=== PATIENT | male | born 1955 | race Hispanic/Latino ===

== ENCOUNTER 2021-05-08 12:34 | Observation (INO) | payer OTHER ==
[~2021-05-08] VITALS: Ht 160 cm; Wt 96.9 kg
[2021-05-08] MEDS ORDERED: ZOSYN 3.375GM+NS 50ML 50 ML IV STA (13:11)
[2021-05-08] MEDS ORDERED: ACETAMINOPHEN 500 MG TABLET PO ONE (13:30)
[2021-05-08] MEDS ORDERED: KETOROLAC 15MG/ML VIAL (15MG/ML) IV ONE (13:30)
[2021-05-08] MEDS ORDERED: VANCOMYCIN 1G VIAL IVPB ONE (13:30)
[2021-05-08] MEDS ORDERED: 0.9%NACL 1000ML 1,000 ML IV ONE (13:44)
[2021-05-08] MEDS ORDERED: 0.9%NACL 100ML 100 ML ONE (13:45)
[2021-05-08 13:46] LABS: BASOPHILS % (AUTO) 0.4 % (0.0-5.0); EOSINOPHILS % (AUTO) 0.6 % (0.0-8.0); HEMATOCRIT 36.2 % (42-54); LYMPHOCYTES % (AUTO) 18.5 % (21.0-51.0); MEAN CORPUSCULAR HEMOGLOBIN 28.1 pg (27.0-33.0); MEAN CORPUSCULAR HGB CONC 32.3 g/dL (32.0-36.0); MEAN CORPUSCULAR VOLUME 86.8 fL (79-99); MONOCYTES % (AUTO) 8.6 % (3.0-13.0); NEUTROPHILS % (AUTO) 71.3 % (40.0-77.0); PLATELET COUNT (AUTO) 237 K/uL (130-400); RED BLOOD CELL COUNT(AUTO) 4.17 MIL/uL (4.50-6.20); RED CELL DISTRIBUTION WIDTH 14.7 % (11.0-15.5)
[2021-05-08 13:57] LABS: PROTHROMBIN TIME 10.9 SEC (9.6-11.6)
[2021-05-08 13:58] LABS: PARTIAL THROMBOPLASTIN TIME 27.9 SEC (26.3-35.5)
[2021-05-08 13:59] LABS: CREATININE 0.9 mg/dL (0.5-1.5); POTASSIUM 4.1 mmol/L (3.5-5.1)
[2021-05-08 14:01] LABS: APPEARANCE,URINE CLEAR (CLEAR); BILIRUBIN,URINE NEGATIVE (NEGATIVE); COLOR,URINE YELLOW (YELLOW); GLUCOSE, URINE (UA) NEGATIVE (NEGATIVE); KETONES,URINE NEGATIVE (NEGATIVE); LEUKOCYTE ESTERASE ,URINE TRACE (NEGATIVE); NITRATE,URINE NEGATIVE (NEGATIVE); OCCULT BLOOD,URINE SMALL (NEGATIVE); PROTEIN,URINE NEGATIVE (NEGATIVE); UROBILINOGEN,URINE 0.2 mg/dL (0.2-1.0)
[2021-05-08 14:04] LABS: ALBUMIN 3.2 g/dL (3.5-5.0); BILIRUBIN,TOTAL 0.4 mg/dL (0.2-1.0)
[2021-05-08] MEDS ORDERED: VANCOMYCIN 1G/250ML KIT 250 ML IV ONE (14:13)
[2021-05-08 14:49] LABS: BACTERIA,URINE Few /HPF (None Seen); RBC,URINE 0-1 /HPF (0-1)
[2021-05-08] MEDS ORDERED: HYDROCODONE/ACETAMINOPHEN 5/325 MG TAB PO PRN (15:30)
[2021-05-08] MEDS ORDERED: CLONIDINE HCL 0.1 MG TABLET PO PRN (15:30)
[2021-05-08] MEDS ORDERED: ACETAMINOPHEN 650 MG SUPPOSITORY RC PRN (15:30)
[2021-05-08] MEDS ORDERED: HYDRALAZINE 20MG/ML VIAL IV PRN (15:30)
[2021-05-08] MEDS ORDERED: LACTULOSE 20 GM/30 ML UDCUP PO PRN (15:30)
[2021-05-08] MEDS ORDERED: HYDROMORPHONE 0.5 MG SYG (0.5MG/0.5ML) IVP PRN (15:30)
[2021-05-08] MEDS ORDERED: DOCUSATE SODIUM 100 MG CAP PO PRN (15:30)
[2021-05-08] MEDS ORDERED: VANCOMYCIN PROTOCOL PER PHARMACY IV SCH (15:30)
[2021-05-08] MEDS ORDERED: TEMAZEPAM 15 MG CAPSULE PO PRN (15:30)
[2021-05-08] MEDS ORDERED: ONDANSETRON 4MG INJ IVP PRN (15:30)
[2021-05-08] MEDS ORDERED: ACETAMINOPHEN 325 MG TAB PO PRN (15:30)
[2021-05-08] MEDS ORDERED: LABETALOL 20MG SYG IV PRN (15:30)
[2021-05-08] MEDS: VANCOMYCIN 1G/250ML KIT 250 ML IV SCH (16:04)
[2021-05-08] MEDS: 0.9%NACL 1000ML 1,000 ML IV SCH (16:25)
[2021-05-08] MEDS ORDERED: ATOR10TA PO (16:33)
[2021-05-08] MEDS ORDERED: TAMS-1 PO (16:33)
[2021-05-08] MEDS ORDERED: METF-446 PO (16:33)
[2021-05-08] MEDS ORDERED: PIOG30TA10 PO (16:33)
[2021-05-08] MEDS ORDERED: LOSA50TA64 PO (16:33)
[2021-05-08] MEDS ORDERED: OXYB5TAB15 PO (16:33)
[2021-05-08] MEDS ORDERED: ALLO300T2 PO (16:33)
[2021-05-08 16:49] VITALS: BP 149/89
[2021-05-08] MEDS: METFORMIN HCL 500 MG TABLET PO SCH (17:48)
[2021-05-08] MEDS ORDERED: ZOSYN 3.375GM+NS 50ML 50 ML ONE (19:32)
[2021-05-08] MEDS: ZOSYN 3.375GM +NS 50ML IV SCH (19:50)
[2021-05-08 20:00] VITALS: BP 109/61
[2021-05-09] VITALS: BP 119/74
[2021-05-09 04:00] VITALS: BP 116/72
[2021-05-09] MEDS: 0.9%NACL 1000ML 1,000 ML IV SCH (04:50)
[2021-05-09 04:57] LABS: BASOPHILS % (AUTO) 0.5 % (0.0-5.0); EOSINOPHILS % (AUTO) 2.6 % (0.0-8.0); HEMATOCRIT 33.9 % (42-54); MEAN CORPUSCULAR HEMOGLOBIN 27.5 pg (27.0-33.0); MEAN CORPUSCULAR HGB CONC 31.6 g/dL (32.0-36.0); MEAN CORPUSCULAR VOLUME 87.1 fL (79-99); MONOCYTES % (AUTO) 8.5 % (3.0-13.0); NEUTROPHILS % (AUTO) 66.9 % (40.0-77.0); PLATELET COUNT (AUTO) 237 K/uL (130-400); RED BLOOD CELL COUNT(AUTO) 3.89 MIL/uL (4.50-6.20); WHITE BLOOD COUNT (AUTO) 6.4 K/uL (4.8-10.8)
[2021-05-09] MEDS: VANCOMYCIN 1G/250ML KIT 250 ML IV SCH ×2 (05:09→17:39)
[2021-05-09] MEDS: ZOSYN 3.375GM +NS 50ML IV SCH ×3 (05:09→21:25)
[2021-05-09 05:13] LABS: CREATININE 0.9 mg/dL (0.5-1.5); PHOSPHORUS 4.7 mg/dL (2.5-4.9); POTASSIUM 4.1 mmol/L (3.5-5.1)
[2021-05-09] MEDS: METFORMIN HCL 500 MG TABLET PO SCH ×2 (08:48→16:18)
[2021-05-09] MEDS: PIOGLITAZONE 30MG TAB PO SCH (08:49)
[2021-05-09] MEDS: LOSARTAN 50 MG TABLET PO SCH (08:49)
[2021-05-09] MEDS: TAMSULOSIN HCL 0.4 MG CAP.ER.24H PO SCH (08:50)
[2021-05-09] MEDS: PANTOPRAZOLE 40 MG TAB DR PO SCH (08:55)
[2021-05-09] MEDS: ALLOPURINOL 300 MG TABLET PO SCH (08:55)
[2021-05-09] MEDS: OXYBUTYNIN CHLORIDE 5 MG TABLET PO SCH (08:56)
[2021-05-09] MEDS: ATORVASTATIN 10 MG TABLET PO SCH (08:56)
[2021-05-09] MEDS: ENOXAPARIN SODIUM 40 MG/0.4 ML SYRINGE SQ SCH (09:13)
[2021-05-09 09:17] VITALS: BP 120/66
[2021-05-09 11:07] VITALS: BP 114/61
[2021-05-09 13:31] LABS: HEMOGLOBIN A1C 6.8 % (4.0-6.0)
[2021-05-09 16:06] VITALS: BP 108/54
[2021-05-09] MEDS ORDERED: 0.9% NACL 250ML 250 ML ONE (17:37)
[2021-05-09 20:00] VITALS: BP 111/63
[2021-05-10] VITALS: BP 106/50
[2021-05-10 04:00] VITALS: BP 112/55
[2021-05-10] MEDS: ZOSYN 3.375GM +NS 50ML IV SCH ×2 (04:58→14:27)
[2021-05-10 05:17] LABS: HEMATOCRIT 32.4 % (42-54); MEAN CORPUSCULAR HEMOGLOBIN 27.7 pg (27.0-33.0); MEAN CORPUSCULAR HGB CONC 31.8 g/dL (32.0-36.0); MEAN CORPUSCULAR VOLUME 87.1 fL (79-99); RED BLOOD CELL COUNT(AUTO) 3.72 MIL/uL (4.50-6.20); RED CELL DISTRIBUTION WIDTH 14.8 % (11.0-15.5); WHITE BLOOD COUNT (AUTO) 5.7 K/uL (4.8-10.8)
[2021-05-10 05:38] LABS: CREATININE 0.9 mg/dL (0.5-1.5)
[2021-05-10] MEDS ORDERED: 0.9% NACL 250ML 250 ML ONE (05:45)
[2021-05-10] MEDS: VANCOMYCIN 1G/250ML KIT 250 ML IV SCH (05:46)
[2021-05-10] MEDS ORDERED: COMPOUND IV REFRIGERATED 1 EACH IVSOLN MISC PRN (06:30)
[2021-05-10] MEDS: METFORMIN HCL 500 MG TABLET PO SCH ×2 (09:18→18:08)
[2021-05-10] MEDS: PIOGLITAZONE 30MG TAB PO SCH (09:19)
[2021-05-10] MEDS: ATORVASTATIN 10 MG TABLET PO SCH (09:19)
[2021-05-10] MEDS: LOSARTAN 50 MG TABLET PO SCH (09:19)
[2021-05-10] MEDS: TAMSULOSIN HCL 0.4 MG CAP.ER.24H PO SCH (09:19)
[2021-05-10] MEDS: OXYBUTYNIN CHLORIDE 5 MG TABLET PO SCH (09:20)
[2021-05-10] MEDS: ENOXAPARIN SODIUM 40 MG/0.4 ML SYRINGE SQ SCH (09:20)
[2021-05-10] MEDS: ALLOPURINOL 300 MG TABLET PO SCH (09:20)
[2021-05-10] MEDS: PANTOPRAZOLE 40 MG TAB DR PO SCH (09:20)
[2021-05-10 09:32] VITALS: BP 147/68
[2021-05-10 11:44] VITALS: BP 116/59
[2021-05-10 12:13] LABS: INR 0.98 (0.85-1.15); PROTHROMBIN TIME 10.7 SEC (9.6-11.6)
[2021-05-10 16:51] VITALS: BP 109/61
[2021-05-10] MEDS ORDERED: VANCOMYCIN 1.25GM/NS 250ML IVPB SCH ×2 (18:00)
== END 2021-05-10 19:06 | disposition home or self-care (01) ==
LOC: EDH 12:34 → EDHIP 15:11 → 3BH 16:26
PROVIDERS: ADMIT Internal Medicine Critical Care Medicine; ATTEND Internal Medicine Critical Care Medicine
DX: L03.116 Cellulitis of left lower limb (principal); Z20.822 Contact with and (suspected) exposure to COVID-19; I10 Essential (primary) hypertension; E11.9 Type 2 diabetes mellitus without complications; E78.5 Hyperlipidemia, unspecified; I73.9 Peripheral vascular disease, unspecified; I25.10 Atherosclerotic heart disease of native coronary artery without angina pectoris; E66.9 Obesity, unspecified; N40.0 Benign prostatic hyperplasia without lower urinary tract symptoms; E78.00 Pure hypercholesterolemia, unspecified; Z79.84 Long term (current) use of oral hypoglycemic drugs; Z79.899 Other long term (current) drug therapy
CPT/HCPCS: 36415 ×3; 80048 ×2; 80053; 80202; 81001; 82948 ×9; 83036; 83605; 83735; 83880; 84100; 84145; 85025 ×2; 85027; 85610 ×2; 85730; 87040 ×2; 87088; 87635; 93971; 96365; 96366 ×3; 96367; 96372 ×2; 96375; 96376; 97161; 99284; C9803; G0378 ×52; J1650 ×2; J1885; J2543 ×7; J3370 ×5; J7030 ×2; J7050 ×2

== ENCOUNTER 2021-06-19 00:59 | Emergency (ER) | payer OTHER ==
[~2021-06-19] VITALS: Ht 160 cm; Wt 94.3 kg
[~2021-06-19 00:59] MED LIST: ALLO300T2 PO; ATOR10TA PO; LOSA50TA64 PO; METF-446 PO; OXYB5TAB15 PO; PIOG30TA10 PO; TAMS-1 PO
[2021-06-19] MEDS ORDERED: NIRM1TAB PO (05:42)
[2021-06-19 05:55] VITALS: BP 136/72
== END 2021-06-19 05:57 | disposition home or self-care (01) ==
LOC: EDH 00:59
DX: U07.1 COVID-19 (principal); E11.9 Type 2 diabetes mellitus without complications; E78.00 Pure hypercholesterolemia, unspecified; I10 Essential (primary) hypertension; Z79.82 Long term (current) use of aspirin; Z79.84 Long term (current) use of oral hypoglycemic drugs; Z79.899 Other long term (current) drug therapy
CPT/HCPCS: 87635; 87804 ×2; 87880; 99283; C9803

== ENCOUNTER 2023-07-07 18:45 | Emergency (ER) | payer OTHER ==
[~2023-07-07] VITALS: Ht 160 cm; Wt 102.1 kg
[~2023-07-07 18:45] MED LIST changes: +ACET-2079 PO; +AMOX-426 PO; +OXYB10TA30 PO; -OXYB5TAB15 PO
[2023-07-07 19:31] LABS: BASOPHILS # (AUTO) 0.05 K/uL (0.00-0.20); BASOPHILS % (AUTO) 0.6 % (0.0-5.0); EOSINOPHILS # (AUTO) 0.07 K/uL (0.00-0.70); EOSINOPHILS % (AUTO) 0.8 % (0.0-8.0); HEMATOCRIT 42.8 % (42-54); IMMATURE GRANULOCYTE ABSOLUTE 0.02 K/uL (0-1); LYMPHOCYTES # (AUTO) 1.9 K/uL (1.0-4.8); LYMPHOCYTES % (AUTO) 21.2 % (21.0-51.0); MEAN CORPUSCULAR HEMOGLOBIN 28.4 pg (27.0-33.0); MEAN CORPUSCULAR HGB CONC 32.9 g/dL (32.0-36.0); MEAN CORPUSCULAR VOLUME 86.3 fL (79-99); MONOCYTES # (AUTO) 0.6 K/uL (0.1-1.0); MONOCYTES % (AUTO) 6.3 % (3.0-13.0); NEUTROPHILS # (AUTO) 6.3 K/uL (1.8-7.7); NEUTROPHILS % (AUTO) 70.9 % (40.0-77.0); PLATELET COUNT (AUTO) 324 K/uL (130-400); RED BLOOD CELL COUNT(AUTO) 4.96 MIL/uL (4.50-6.20); RED CELL DISTRIBUTION WIDTH 14.6 % (11.0-15.5); WHITE BLOOD COUNT (AUTO) 8.9 K/uL (4.8-10.8)
[2023-07-07 19:45] LABS: CREATININE 0.9 mg/dL (0.5-1.5)
[2023-07-07 19:55] LABS: ALBUMIN 4.1 g/dL (3.5-5.0); BILIRUBIN,TOTAL 0.5 mg/dL (0.2-1.0); TOTAL PROTEIN, SERUM 8.6 g/dL (6.0-8.3)
[2023-07-07 22:30] VITALS: BP 132/70; PULSE 90; RESP 14; O2SAT 97
== END 2023-07-07 22:38 | disposition home or self-care (01) ==
LOC: EDH 18:45
DX: R42 Dizziness and giddiness (principal); I10 Essential (primary) hypertension; E11.9 Type 2 diabetes mellitus without complications; E78.00 Pure hypercholesterolemia, unspecified; Z79.84 Long term (current) use of oral hypoglycemic drugs; Z79.899 Other long term (current) drug therapy; Z98.890 Other specified postprocedural states
CPT/HCPCS: 36415; 70450; 80053; 83880; 84484; 85025; 93005; 93970

== ENCOUNTER 2024-02-12 21:19 | Emergency (ER) | payer OTHER ==
[~2024-02-12] VITALS: Ht 160 cm; Wt 99.8 kg
[2024-02-12] MEDS: ketOROlac 30MG VIAL (30MG/ML) IM ONE (22:13)
[2024-02-12] MEDS ORDERED: KETO10TA2 PO (22:19)
[2024-02-12 22:39] VITALS: BP 142/74; PULSE 89; RESP 16; TEMP 98.2; O2SAT 99
== END 2024-02-12 22:38 | disposition home or self-care (01) ==
LOC: EDH 21:19
DX: S86.912A Strain of unspecified muscle(s) and tendon(s) at lower leg level, left leg, initial encounter (principal); R60.0 Localized edema; E11.9 Type 2 diabetes mellitus without complications; E78.00 Pure hypercholesterolemia, unspecified; I10 Essential (primary) hypertension; Z79.2 Long term (current) use of antibiotics; Z79.899 Other long term (current) drug therapy; Z79.84 Long term (current) use of oral hypoglycemic drugs; Z98.890 Other specified postprocedural states; X50.1XXA Overexertion from prolonged static or awkward postures, initial encounter; Y93.89 Activity, other specified; Y92.89 Other specified places as the place of occurrence of the external cause; Y99.8 Other external cause status
CPT/HCPCS: 99285; 93970; 73564; 96372; J1885